=== PATIENT | female | born 1980 | race Caucasian/White ===

== ENCOUNTER 2025-01-27 10:21 | Emergency (ER) | payer MEDICAID, OTHER ==
[~2025-01-27] VITALS: Ht 172.7 cm; Wt 118.8 kg
[~2025-01-27 10:21] MED LIST: ALBU6.7H14 INH; CEPH-571 PO
[2025-01-27 11:55] LABS: MEAN PLATELET VOLUME 9.2 FL (7.4-10.4); RED CELL DISTRIBUTION WIDTH 13.9 % (11.5-14.5)
[2025-01-27 12:13] LABS: CREATININE 0.76 MG/DL (0.40-0.90); TOTAL CARBON DIOXIDE 23.9 MMOL/L (24-32); eCRCL 93 ML/MIN; eGFR 82 ML/MIN
[2025-01-27 12:14] LABS: LEUKOCYTE ESTERASE ,URINE NEGATIVE (Neg); NITRITES, URINE NEGATIVE (Neg); OCCULT BLOOD,URINE NEGATIVE (Neg); URINE HCG NEGATIVE (NEG)
[2025-01-27 12:15] LABS: UA COLLECTION TYPE NON-SPECIFIED
--- NOTE | 2025-01-27 12:39 | Physician Documentation ---
History of Present Illness Chief Complaint: Flank Pain Stated Complaint: ABD/BACK PAIN Time Seen by MD: 12:13 HPI This patient acknowledges a chronic history with alcohol abuse and states that she quit drinking approximately a week ago but then began having abdominal pain. She thought maybe she was constipated so the last two nights she has drank whiskey and beer and had some moderate bowel movements. Still is feeling mid epigastric abdominal pain. Denies any vomiting diarrhea Day of Onset: Jan 27, 2025 Medication Reconciliation Allergies: Coded Allergies: Penicillins (Verified Allergy, Unknown, 01/27/25) Scheduled Albuterol Sulfate (Proventil Hfa), 2 PUFFS INH Q6H Cephalexin (Keflex), 1 CAP PO Q8H Past Medical History Past Medical History: No Pertinent History Past Surgical History: noncontributory Alcohol Use: Heavy Lives In: Homeless Occupation: employed Review of Systems All Other Systems at this time: Reviewed and Negative ROS As stated above in the HPI, otherwise all systems are reviewed and negative. Physical Exam Vital Signs: Temperature: 97.9, Source: Temporal, Heart Rate: 89, Respiratory Rate: 18, BP: 181/93, Pulse Oximetry: 100, Weight: 118.750 Oxygen Flow Rate: 0 Physical Exam General: Alert, no apparent distress. Respiratory: Lungs clear, no respiratory distress. Cardiovascular: Regular rate and rhythm, no murmurs. Gastrointestinal: Soft, nontender, nondistended. Bowels sounds present. negative cva tenderness Neurologic: Oriented x4. Psychiatric: Normal mood and affect. Skin: Normal color, warm and dry. No edema, no ecchymosis. Progress Results/Orders Results/Orders Vital Signs 01/27/25 10:28 Temp 97.9 Pulse 89 Resp 18 B/P (MAP) 181/93 Pulse Ox 100 O2 Flow Rate 0 Laboratory Tests Test 01/27/25 11:41 01/27/25 11:55 White Blood Count 11.7 H Red Blood Count 4.68 Hemoglobin 14.0 Hematocrit 41.5 Mean Corpuscular Volume 88.6 Mean Corpuscular Hemoglobin 29.8 Mean Corpuscular Hemoglobin Concent 33.7 Red Cell Distribution Width 13.9 Platelet Count 339 Mean Platelet Volume 9.2 Neutrophils (%) (Auto) 75.7 H Lymphocytes (%) (Auto) 14.3 L Monocytes (%) (Auto) 8.4 Eosinophils (%) (Auto) 0.9 Basophils (%) (Auto) 0.7 Neutrophils # (Auto) 8.8 H Lymphocytes # (Auto) 1.7 Monocytes # (Auto) 1.0 H Eosinophils # (Auto) 0.1 Basophils # (Auto) 0.1 CBC Comment Sodium Level 131 L Potassium Level 4.0 Chloride Level 97 L Carbon Dioxide Level 23.9 L Anion Gap 10 Blood Urea Nitrogen 13 Creatinine 0.76 Estimated GFR/1.73 m2 82 BUN/Creatinine Ratio 17.1 Glucose Level 91 Calcium Level 9.1 Total Bilirubin 0.5 Aspartate Amino Transf (AST/SGOT) 20 Alanine Aminotransferase (ALT/SGPT) 24 Alkaline Phosphatase 66 Total Protein 8.4 H Albumin 3.5 Globulin 4.9 H Albumin/Globulin Ratio 0.7 L Lipase 16 Chemistry Comments Urine Specimen Description Non-specified Urine Color Yellow Urine Clarity Clear Urine pH 6.0 Urine Specific Barney <=1.005 Urine Protein Negative Urine Glucose (UA) Negative Urine Ketones Negative Urine Occult Blood Negative Urine Nitrite Negative Urine Bilirubin Negative Urine Urobilinogen 0.2 Urine Leukocyte Esterase Negative Urine Culture Indicated Not ind Volume Urine Centrifuged 10 ml Urine HCG, Qualitative Negative Urine Comment Medical Decision Making Findings treating for constipation. At this time I do not see any signs or evidence of GI bleed. Patient is going to attempt to his reduce or eliminate all alcohol usage. I told her it is in her homeless some Librium to help with the tapering. Differential Dx:Considerations: Include: AAA, -Complete, - Incomplete, -Inevitable, -Missed, -Threatened, Abruptio placentae, Angina/OH, Aortic dissection, Appendicitis, Bowel obstruction, Cholangitis, Cholelithasis, Constipation, Diverticular disease, Esophageal rupture, Esophagitis, Gastritis/PUD, Gastroenteritis, GI hemorrhage, Hernia, Hepatitis, Inflammatory BD, Ischemic bowel, Ovarian cyst/torsion, Pancreatitis, PID, Porphyria, Trauma, intraabdominal, Urinary obstruction, Urinary tract infection, Urolithiasis, Other Departure Disposition: 01 HOME / SELF CARE / HOMELESS Impression: Primary Impression: Constipation Condition: Stable Discharge Instructions: Constipation, Adult, [id number] Referrals: NO PRIMARY CARE PROVIDER (PCP) Prescriptions Polyethylene Glycol 3350* (Miralax*) 1 Packet Packet 1 PKT PO DAILY for constipation, #30 PKT dissolve in water Prov: KVNG WRIGHT NP 01/27/25 Signature Scribe Signature: vc Attestation: Scribed for Kvng Wright Np by Kvng Olvera NP . 01/27/25 13:46 KVNG WRIGHT NP Jan 27, 2025 12:39
--- NOTE | 2025-01-27 13:14 | RADIOLOGY REPORT ---
Date: 01/27/2025 12:56 PM Examination: DI ABDOMEN,SINGLE VIEW(KUB) History: constip[ation Comparison: None TECHNIQUE: Frontal views of the abdomen was obtained. FINDINGS: Bowel gas pattern is unremarkable. The lung bases are unremarkable. No acute osseous abnormality identified. IMPRESSION: Nonobstructive bowel gas pattern. Large stool burden.
[2025-01-27 13:22] VITALS: TEMP 97.9
[2025-01-27] MEDS ORDERED: POLY17PO10 PO (13:44)
[2025-01-27] MEDS: magnesium citrate 296ml oral solution PO ONE (13:51)
[2025-01-27 13:53] VITALS: BP 148/92; PULSE 74; RESP 14; O2SAT 98
== END 2025-01-27 14:05 | disposition home or self-care (01) ==
LOC: ER 10:22
DX: K59.00 Constipation, unspecified (principal); F10.90 Alcohol use, unspecified, uncomplicated; Z88.0 Allergy status to penicillin; Z79.899 Other long term (current) drug therapy; Z59.00 Homelessness unspecified; Y90.9 Presence of alcohol in blood, level not specified
CPT/HCPCS: 36415; 74018; 80053; 81003; 81025; 83690; 85025; 99284